=== PATIENT | female | born 1995 | race Caucasian/White ===

== ENCOUNTER 2016-07-06 07:03 | Emergency (ER) | payer SELFPAY ==
[2016-07-06 08:13] LABS: ABSOLUTE NEUTROPHIL COUNT 6.1 K/mm3 (1.8-7.7); BASO # 0.1 K/mm3 (0.0-0.2); BASO % 0.7 % (0.2-1.0); EOS # 0.2 (0.0-0.5); EOS % 1.8 % (0.9-2.9); HEMATOCRIT 35.7 % (37.0-47.0); HEMOGLOBIN 10.8 gm/l (12.0-16.0); IMM NEUT% 0.2 % (0-1); LYMPH # 1.9 (1.0-4.8); LYMPH % 21.1 % (15-45); MEAN CELL VOLUME 76.4 fl (81.0-99.0); MEAN CORPUSCULAR HEMOGLOBIN 23.1 pg (27.0-31.0); MEAN CORPUSCULAR HGB CONC 30.3 g/dl (33.0-37.0); MEAN PLATELET VOLUME 11.7 fl (7.4-10.4); MONO # 0.7 (0.0-0.8); MONO % 7.6 % (4-12); NEUT % 68.6 % (43-75); PLATELET COUNT 315 K/mm3 (130-400); RED CELL DISTRIBUTION WIDTH 15.2 % (11.5-14.5)
[2016-07-06 08:20] LABS: URINE APPEARANCE CLEAR; URINE BILIRUBIN NEGATIVE (NEGATIVE); URINE BLOOD NEGATIVE (NEGATIVE); URINE COLOR YELLOW; URINE GLUCOSE (UA) NEGATIVE (NEGATIVE); URINE LEUKOCYTE ESTERASE NEGATIVE (NEGATIVE); URINE NITRITE NEGATIVE (NEGATIVE); URINE PROTEIN NEGATIVE (NEGATIVE); URINE UROBILINOGEN NORMAL (0-1 mg/dl)
[2016-07-06 08:22] LABS: HCG,QUALITATIVE URINE NEGATIVE
[2016-07-06 08:33] LABS: ALB/GLOB RATIO 1.2 (>1.0); ALBUMIN 4.1 gm/dL (3.5-5.7); ALT/SGPT 12 U/L (7-52); BLOOD UREA NITROGEN 15 mg/dL (7-25); BUN/CREATININE RATIO 25 (6-20); CALCIUM 9.2 mg/dL (8.6-10.3)
--- NOTE | 2016-07-06 08:56 | US ---
Exam: Limited pelvic ultrasound COMPARISON: None INDICATION: Left lower quadrant pain. FINDINGS: Transabdominal and transvaginal ultrasound of the left lower quadrant was obtained. Left ovary measures 2.3 x 2.1 x 1.2 cm and is unremarkable, without mass. Blood flow is present within the left ovary. There is a small amount of free fluid in the pelvis, particularly about the left adnexa, which is within physiologic range and simple in appearance. IMPRESSION: Normal left ovary. Report called to Dr. Dickey 0852 hours 07/06/2016.
[2016-07-06] MEDS ORDERED: ONDANSETRON 4 MG/2ML 2 ML VIAL ONE (09:18)
[2016-07-06] MEDS ORDERED: KETOROLAC TROMETHAMINE 15 MG/ML VIAL ONE (09:18)
[2016-07-07 14:08] LABS: CHLAMYDIA BD Negative (Negative); N.GONORRHOEAE BD Negative (Negative); SOURCE Urine (())
== END 2016-07-06 10:21 | disposition home or self-care (01) ==
LOC: ED 07:03
DX: R10.32 Left lower quadrant pain (principal); R11.0 Nausea
CPT/HCPCS: 87491; 87591; 81025; 85025; 80053; 81003; 76857; 96375; 99283 ×2; 96374; J1885; J2405